=== PATIENT | female | born 1985 | race Caucasian/White ===

== ENCOUNTER → 2017-01-07 | Outpatient (REF) | payer OTHER ==
[~2017-01-07] MED LIST: PRENTAB52 PO; RANI15TA PO
== END ==
LOC: M LAB REF 17:07
PROVIDERS: ATTEND Family Medicine
DX: R87.610 Atypical squamous cells of undetermined significance on cytologic smear of cervix (ASC-US) (principal)

== ENCOUNTER → 2019-05-15 | Outpatient (REF) | payer OTHER | LOC: M LAB REF 13:55 | PROVIDERS: ATTEND Family Medicine | DX: Z12.4 Encounter for screening for malignant neoplasm of cervix (principal) | CPT/HCPCS: 87624; G0123 ==